=== PATIENT | female | born 1990 | race Caucasian/White ===

== ENCOUNTER 2023-02-22 08:08 | Emergency (ER) | payer OTHER, SELFPAY ==
--- NOTE | 2023-02-22 08:18 | ED.EAR ---
HPI - Ear Problem General Chief complaint: Ear Stated complaint: Ear Pain/Right Side Facial Swelling Source: patient and RN notes reviewed History of Present Illness HPI Narrative: 32 yo F presents to urgent care with complaints of bilateral ear pressure and fullness. Pt reports congestion since last week. Pt states she just got back from [place] yesterday and she can normally get her ears to pop on the plane but this time they did not. Pt denies any fevers, chills, N/V/D, or other complaints. Pt has taken Zyrtec at home. Related Data Home Medications Medication Instructions Recorded Confirmed aspirin 81 mg tablet 81 mg PO DAILY 02/22/23 02/22/23 Allergies Allergy/AdvReac Type Severity Reaction Status Date / Time amoxicillin AdvReac Nausea Verified 02/22/23 08:25 Review of Systems Review of Systems: CONSTITUTIONAL: Denies fever, chills, or sweats. EYES: Denies visual changes, redness, or discharge. ENT: Bilateral ear pressure and muffled hearing CARDIOVASCULAR: Denies chest pain, palpitations, or edema. RESPIRATORY: Denies cough or dyspnea. GASTROINTESTINAL: Denies abdominal pain, nausea, vomiting, or diarrhea. GENITOURINARY: Denies dysuria or hematuria. SKIN: Denies rash or itching. MUSCULOSKELETAL: Denies back pain, joint pain, or myalgia. NEUROLOGIC: Denies headache, numbness, or weakness. Pertinent positives per HPI. PMFSH Comments At the time of my signature, I reviewed and agree with the nursing past medical, surgical, social, and family history. There is no relevant family history pertinent to the patient complaint. Exam Narrative: GENERAL: This is a well-nourished, well-developed patient, in no apparent distress. HEAD: normocephalic, atraumatic. EYES: Sclera clear/white. Vision is grossly intact. EARS: External ears normal, auditory canals clear and without drainage, bilateral TMs erythremic and bulging without perforation. NOSE: External nose normal with no obvious nasal discharge, nares without redness, no rhinorrhea. THROAT: Mucous membranes moist, posterior pharynx clear. NECK: Neck supple, non-tender without lymphadenopathy, masses or thyromegaly. CARDIOVASCULAR: Regular rate and rhythm without murmurs, gallops, or rubs. RESPIRATORY: Clear to auscultation. Breath sounds equal bilaterally. No wheezes, rales, or rhonchi. GASTROINTESTINAL: Abdomen soft, non-tender, nondistended. Bowel sounds are active. No hepato-splenomegaly, or palpable masses. No guarding. SKIN: warm, intact with no suspicious lesions or rash, good texture and turgor. NEURO: awake, alert, and oriented to person, place and time. There were no obvious focal neurologic abnormalities. EXTREMITIES: No clubbing, cyanosis, or edema. No joint tenderness, effusion, or edema noted. BACK: Nontender without deformity or crepitus. No flank tenderness. Course Course Level of Care: Express Care Visit Vital Signs Vital signs: Reviewed Medical Decision Making MDM Narrative Medical decision making narrative: Take antibiotics as directed. May given ibuprofen and/or Tylenol as needed for pain and/or fever. Follow up with primary care provider in 7-10 days to have ear rechecked. Differential Diagnosis Differential Diagnosis: Acute otitis media, otitis externa, URI Critical Care Time Critical Care Time Critical Care Time: No Discharge Plan Discharge Clinical Impression: Otitis media Qualifiers: Otitis media type: unspecified Chronicity: acute Qualified Code(s): H66.90 - Otitis media, unspecified, unspecified ear Patient Disposition: Home, Self-Care Condition: Stable Instructions: Antibiotic Form, Ear Infection (AC) Additional Instructions: Take antibiotics as directed. May given ibuprofen and/or Tylenol as needed for pain and/or fever. Follow up with primary care provider in 7-10 days to have ear rechecked. Prescriptions: New azithromycin [Zithromax Z-Bert] 250 mg tablet 250 mg PO DAILY 5 Days Qty: 6 0RF
[2023-02-22 08:19] VITALS: BP 141/91; PULSE 81; RESP 16; TEMP 36.6; O2SAT 98
== END 2023-02-22 08:42 | disposition home or self-care (01) ==
PROVIDERS: Emergency Provider Nurse Practitioner Family
DX: H66.93 Otitis media, unspecified, bilateral (principal); Z86.73 Personal history of transient ischemic attack (TIA), and cerebral infarction without residual deficits; Z79.82 Long term (current) use of aspirin
CPT/HCPCS: 99213; G0463